=== PATIENT | female | born 1955 | race Caucasian/White ===

== ENCOUNTER → 2018-05-10 | Outpatient (CLI) | payer OTHER, MEDICAID ==
[~2018-05-10] MED LIST: ACETAMINOPHEN-1 EAC1; ADDERALL 10 MG10 MG PO; ADDERALL 20 MG20 MG PO; ASPIR 8181 MG PO; ASPIRIN EC81 M1 PO; ATIVAN1 MG; ATIVAN1 MG PO; BACTRIM DS TAB1 EACH PO; CELEBREX 200 M200 M1 PO; CLOPIDOGREL; CYMBALTA60 MG PO; DIFLUCAN; DIFLUCAN150 MG PO; DIFLUCAN200 MG PO; DOXEPIN; DOXYCYCLINE 10100 M1; DOXYCYCLINE 10100 MG PO; EFFEXOR XR; EFFEXOR XR75 MG PO; EFFIENT10 MG PO; ELIMITE60 GM TP; FLUCONAZOLE 10100 MG PO; INDOMETHACIN; KEFLEX500 MG PO; KLONOPIN1 MG PO; LIDOCAINE 3%-HC7 GM; LISINOPRIL5 MG PO; LITHIUM CARBON150 MG; LITHIUM CARBON300 M7 PO; LITHIUM CARBON300 MG PO; LIVALO4 MG PO; LOVAZA1000 MG PO; LYRICA 50 MG50 MG PO; MIRALAX255 GM PO; MUPIROCIN22 GM TOP; NITROGLYCERIN0.4 MG SUBLING; NITROSTAT0.4 MG; PERCOCET 5-3251 EACH PO; PHENERGAN 25 MG25 MG PO; PLAVIX 75 MG TA75 M1 PO; PRILOSEC 20 MG20 MG PO; PRILOSEC40 MG PO; RAMIPRIL5 MG PO; RANITIDINE; RESTORIL15 MG PO; RISPERDAL; RISPERDAL0.25 MG PO; SAVELLA1 EACH PO; SINGULAIR 10 MG10 M1 PO; TRAMADOL; TYLENOL325 MG PO; ULTRAM 50MG TAB50 MG PO; VICODIN 5-3001 EACH PO; VISTARIL; VITAMIN D-32000 UNIT; [UNRECOGNIZED DRUG - OTHER]
== END ==
LOC: M.RAD 04-26 13:30
DX: Z13.820 Encounter for screening for osteoporosis (principal); M85.88 Other specified disorders of bone density and structure, other site; Z72.0 Tobacco use; Z78.0 Asymptomatic menopausal state